=== PATIENT | female | born 1995 | race Caucasian/White ===

== ENCOUNTER 2017-10-03 21:11 | Emergency (ER) | payer MEDICAID ==
--- NOTE | 2017-10-03 23:14 | EDM.PDOC ---
ED HPI GENERAL MEDICAL PROBLEM - General Chief Complaint: Abdominal Pain Stated Complaint: ABD PAIN Time Seen by Provider: 10/03/17 23:00 Source of Information: Reports: Patient History Limitations: Reports: No Limitations - History of Present Illness INITIAL COMMENTS - FREE TEXT/NARRATIVE: Kasie presents today with complaints of abdominal pain for 2 weeks. - Related Data Allergies Allergy/AdvReac Type Severity Reaction Status Date / Time No Known Allergies Allergy Verified 10/03/17 22:33 Home Meds: Home Meds NK [No Known Home Meds] 10/03/17 [History] Past Medical History - Infectious Disease History Infectious Disease History: Reports: Chicken Pox - Past Surgical History HEENT Surgical History: Reports: Tonsillectomy Social & Family History - Tobacco Use Smoking Status *Q: Never Smoker - Caffeine Use Caffeine Use: Reports: Coffee - Recreational Drug Use Recreational Drug Use: No ED ROS GENERAL - Review of Systems Review Of Systems: See Below Constitutional: Reports: Chills, Decreased Appetite. Denies: Fever, Malaise, Weakness, Fatigue, Night Sweats, Diaphoresis HEENT: Reports: No Symptoms Respiratory: Denies: Shortness of Breath, Wheezing, Cough, Sputum Cardiovascular: Denies: Chest Pain, Dyspnea on Exertion, Edema, Lightheadedness , Palpitations, PND, Syncope Endocrine: Reports: No Symptoms GI/Abdominal: Reports: Abdominal Pain, Decreased Appetite, Nausea, Other ( intermittent diarrhea and constipation). Denies: Black Stool, Bloody Stool, Difficulty Swallowing, Distension, Flatus, Hematemesis, Hematochezia, Stool Incontinence, Vomiting : Reports: No Symptoms Musculoskeletal: Reports: No Symptoms Skin: Reports: No Symptoms Neurological: Reports: No Symptoms Psychiatric: Reports: No Symptoms Hematologic/Lymphatic: Reports: No Symptoms Immunologic: Reports: No Symptoms ED EXAM, GI/ABD - Physical Exam Exam: See Below Exam Limited By: No Limitations General Appearance: Alert, WD/WN, No Apparent Distress Eyes: Bilateral: Normal Appearance (right eye blue, left eye green), EOMI Ears: Normal External Exam, Normal Canal, Hearing Grossly Normal, Normal TMs Nose: Normal Inspection, Normal Mucosa, No Blood Throat/Mouth: Normal Inspection, Normal Lips, Normal Teeth, Normal Gums, Normal Oropharynx, Normal Voice, No Airway Compromise Head: Atraumatic, Normocephalic Neck: Normal Inspection, Supple, Non-Tender, Full Range of Motion. No: Lymphadenopathy (R), Lymphadenopathy (L) Respiratory/Chest: No Respiratory Distress, Lungs Clear, Normal Breath Sounds, No Accessory Muscle Use, Chest Non-Tender Cardiovascular: Normal Peripheral Pulses, Regular Rate, Rhythm, No Edema, No Gallop, No Murmur, No Rub GI/Abdominal Exam: Normal Bowel Sounds, Soft, No Organomegaly, No Distention, No Mass, Tender, Other (Tenderness to epigastric and umbilical area). No: Guarding, Rigid, Rebound, Hernia, Mass (Female) Exam: Normal External Exam, Normal Speculum Exam, Normal Bimanual Exam Back Exam: Normal Inspection, Full Range of Motion. No: CVA Tenderness (R), CVA Tenderness (L) Extremities: Normal Inspection, Normal Range of Motion, Non-Tender, No Pedal Edema, Normal Capillary Refill Neurological: Alert, Oriented, CN II-XII Intact, Normal Cognition, Normal Gait, No Motor/Sensory Deficits Psychiatric: Normal Affect, Normal Mood Skin Exam: Warm, Dry, Intact, Normal Color, No Rash Lymphatic: No Adenopathy Course - Vital Signs Last Recorded V/S: Last Vital Signs Temp 36.8 C 10/03/17 22:30 Pulse 68 10/03/17 22:30 Resp 14 10/03/17 22:30 BP 129/59 L 10/03/17 22:30 Pulse Ox 100 10/03/17 22:30 - Orders/Labs/Meds Orders: Active Orders 24 hr Category Date Time Status HELICOBACTER PYLORI AG, STOOL [REF] Routine Lab 10/03/17 23:44 Received Labs: Laboratory Tests 10/03/17 10/03/17 10/03/17 Range/Units 23:08 23:22 23:22 WBC 8.6 (4.5-11.0) K/uL RBC 4.12 (3.30-5.50) M/uL Hgb 12.3 (12.0-15.0) g/dL Hct 36.9 (36.0-48.0) % MCV 90 (80-98) fL MCH 30 (27-31) pg MCHC 33 (32-36) % Plt Count 248 (150-400) K/uL Neut % (Auto) 60 (36-66) % Lymph % (Auto) 33 (24-44) % [place] % (Auto) 6 (2-6) % Eos % (Auto) 1 L (2-4) % Baso % (Auto) 0 (0-1) % Sodium 140 (140-148) mmol/L Potassium 3.7 (3.6-5.2) mmol/L Chloride 104 (100-108) mmol/L Carbon Dioxide 26 (21-32) mmol/L Anion Gap 9.7 (5.0-14.0) mmol/L BUN 8 (7-18) mg/dL Creatinine 0.7 (0.6-1.0) mg/dL Est Cr Clr Drug Dosing 115.36 mL/min Estimated GFR (MDRD) > 60 (>60) Glucose 82 (74-106) mg/dL Calcium 9.0 (8.5-10.1) mg/dL Total Bilirubin 0.6 (0.2-1.0) mg/dL AST 19 (15-37) U/L ALT 19 (12-78) U/L Alkaline Phosphatase 70 (46-116) U/L Total Protein 7.1 (6.4-8.2) g/dL Albumin 4.2 (3.4-5.0) g/dL Globulin 2.9 (2.3-3.5) g/dL Albumin/Globulin Ratio 1.4 (1.2-2.2) Amylase 44 (25-115) U/L Lipase 85 (73-393) U/L Urine Color Yellow Urine Appearance Clear Urine pH 6.5 (4.5-8.0) Ur Specific [place] 1.010 (1.008-1.030) Urine Protein Negative (NEGATIVE) mg/dL Urine Glucose (UA) Normal (NEGATIVE) mg/dL Urine Ketones Negative (NEGATIVE) mg/dL Urine Occult Blood Negative (NEGATIVE) Urine Nitrite Negative (NEGATIVE) Urine Bilirubin Negative (NEGATIVE) Urine Urobilinogen Normal (NORMAL) mg/dL Ur Leukocyte Esterase Negative (NEGATIVE) Urine RBC Not seen (0-5) Urine WBC 0-5 (0-5) Ur Epithelial Cells Rare Amorphous Sediment Not seen Urine Bacteria Not seen Urine Mucus Not seen Lab work reviewed with patient, no acute findings. It is in her best interest to establish care with a provider, complete stool study testing. She does drink well water. She can start use of PPI - omeprazole after she completes a stool study. - Re-Assessments/Exams Free Text/Narrative Re-Assessment/Exam: 10/04/17 00:50 Patient lab work and assessment reviewed with her. All her questions were answered. Differential diagnosis include: GERD H pylori Irritable bowel Departure - Departure Time of Disposition: 00:50 Disposition: Home, Self-Care 01 Condition: Good Clinical Impression: Abdominal pain, Gastroenteritis - Discharge Information Instructions: Abdominal Pain, Adult, [id number] Referrals: PCP,None [Primary Care Provider] - Forms: ED Department Discharge Additional Instructions: You have been evaluated in the emergency room for abdominal pain. Your lab work tonight did not show any abnormalities. It would be best for you to complete a stool study. Supples and a hard copy script are provided for you to get the testing done at [facility]. You can also take omeprazole 20mg by mouth once daily 30 minutes prior to breakfast every day. Do not start omeprazole until you have provided a stool sample to your provider of choice. You can also try elevating the head of your bed, staying away from spicy foods as well as alcohol. You can try the BRAT diet to help with your abdominal pain/diarrhea/ constipation (Bananas, rice, apples sauce and toast). Return for any worsening, fever, chills, inability to have a bowel movement or other issues/concerns. - My Orders Last 24 Hours: My Active Orders 10/03/17 23:44 HELICOBACTER PYLORI AG, STOOL [REF] Routine - Assessment/Plan Last 24 Hours: My Active Orders 10/03/17 23:44 HELICOBACTER PYLORI AG, STOOL [REF] Routine Assessment:: Abdominal pain Gastritis Plan: Patient evaluated in the emergency room for abdominal pain. Her lab work tonight did not show any abnormalities. It would be best for her to complete a stool study. Supples and a hard copy script are provided to get the testing done at [facility]. She can also take omeprazole 20mg by mouth once daily 30 minutes prior to breakfast every day. Do not start omeprazole until she has provided a stool sample to her provider of choice. She can also try elevating the head of her bed, staying away from spicy foods as well as alcohol. She can try the BRAT diet to help with her abdominal pain/diarrhea/constipation (Bananas, rice, apples sauce and toast). Return for any worsening, fever, chills, inability to have a bowel movement or other issues/concerns.
== END 2017-10-04 01:09 | disposition home or self-care (01) ==
LOC: JP.ED 21:11
DX: K52.9 Noninfective gastroenteritis and colitis, unspecified (principal)
CPT/HCPCS: 36415; 80053; 81001; 82150; 83690; 85025; 87338; 99284